=== PATIENT | male | born 1975 | race American Indian/Alaskan Native ===

== ENCOUNTER 2017-03-10 10:44 | Observation (INO) | payer BC, MEDICAID ==
[2017-03-10] MEDS ORDERED: Sodium Chloride 0.9% 1,000 ML IV ONE ×2 (11:10→11:36)
--- NOTE | 2017-03-10 11:10 | C.PDOC ---
History Of Present Illness 41 Y/O MALE C/O VOMITING AND ABDOMINAL PAIN SINCE YESTERDAY. NOTES 4 EPISODES OF VOMITING, VOMITUS CONSISTING OF FOODSTUFFS. DENIES HISTORY OF STOMACH MEDICAL PROBLEMS. OTHERWISE, DENIES DIARRHEA, FEVER, SICK CONTACTS. NO PRIOR ABDOMINAL SURGICAL HISTORY. Time Seen by Provider: 03/10/17 10:58 Chief Complaint (Nursing): Abdominal Pain History Per: Patient History/Exam Limitations: no limitations Onset/Duration Of Symptoms: Days Current Symptoms Are (Timing): Still Present Quality Of Discomfort: "Pain" Associated Symptoms: Vomiting. denies: Fever, Chills, Diarrhea Recent travel outside of the [place]: No Past Medical History Reviewed: Historical Data, Nursing Documentation, Vital Signs Vital Signs: Last Vital Signs Temp 98 F 03/10/17 10:56 Pulse 96 H 03/10/17 14:25 Resp 20 03/10/17 14:25 BP 117/73 03/10/17 14:25 Pulse Ox 99 03/10/17 17:28 - Medical History PMH: No Chronic Diseases Family History: States: Unknown Family Hx - Social History Hx Alcohol Use: No Hx Substance Use: No - Immunization History Hx Tetanus Toxoid Vaccination: No Hx Influenza Vaccination: No Hx Pneumococcal Vaccination: No Review Of Systems Except As Marked, All Systems Reviewed And Found Negative. Constitutional: Negative for: Fever, Chills Cardiovascular: Negative for: Chest Pain Respiratory: Negative for: Cough, Shortness of Breath, Wheezing Gastrointestinal: Positive for: Vomiting, Abdominal Pain Genitourinary: Negative for: Dysuria Skin: Negative for: Rash Physical Exam - Physical Exam Appears: Non-toxic, Other (MILD DISTRESS) Skin: Normal Color, Warm, Dry Head: Atraumatic, Normacephalic Oral Mucosa: Moist Chest: Symmetrical Cardiovascular: Rhythm Regular Respiratory: Normal Breath Sounds, No Rales, No Rhonchi, No Wheezing Gastrointestinal/Abdominal: Soft, Tenderness (EPIGASTRIC), No Distention, No Guarding, No Rebound, Other Back: Normal Inspection, No CVA Tenderness Extremity: Normal ROM, Capillary Refill (< 2 SEC.) Neurological/Psych: Oriented x3, Normal Speech, Normal Cognition ED Course And Treatment - Laboratory Results Result Diagrams: 03/10/17 11:28 03/10/17 11:28 ECG: Interpreted By Me Interpretation Of ECG: NORMAL SINUS RHYTHM WITH SINUS ARRYTHMIA Rate From EC (BPM) O2 Sat by Pulse Oximetry: 99 (RA) Pulse Ox Interpretation: Normal - CT Scan/US CT ABDOMEN/PELVIS Other Rad Studies (CT/US): Read By Radiologist, Radiology Report Reviewed CT/US Interpretation: IMPRESSION: Question colonic wall thickening of the transverse and portions of the left colon; this is favored to be an exaggerated appearance due to under distension. There are no associated inflammatory changes evident. However correlate clinically to exclude possibility of colitis. Bibasilar atelectasis or infiltrates. Hepatic steatosis. Additional findings as above. Progress - Re-Evaluation Re-evaluation Note: 03/10/17 11:13 NO SIGNS OF ACUTE ABDOMEN. FLUIDS, NAUSEA MEDS, PEPCID, MORPHINE GIVEN. EKG, LABS ORDERED. ED OBSERVATION Discharge: Yes Date of observation admission: 03/10/17 Time of observation admission: 11:00 - Observation admission statement Patient is being placed in observation because:: VOMITING, ABD PAIN - Goals of Observation Goals of observation are:: SX IMPROVE. NEG ACUTE ABD - Progress Note Progress Note: 03/10/17 13:04 improved. still co residual abd pain. ivf in progress 03/10/17 14:12 REPEAT VBG PERSIST ELEV LACTATE BUT IMPROVED COMPARED TO PRIOR CO RECUR NAUSEA, RESID ABD PAIN. SOFT NT ND NO R/G VSS S/P NS 3L. WILL CT, REASSESS 03/10/17 17:53 FEELS BETTER. NV RESOLVED. ABD NEG. Disposition Counseled Patient/Family Regarding: Studies Performed, Diagnosis, Need For Followup, Rx Given - Disposition Disposition: HOME/ ROUTINE Disposition Time: 17:53 Condition: IMPROVED - Clinical Impression Clinical Impression: Abdominal colic, Vomiting - Scribe Statement The provider has reviewed the documentation as recorded by the Scribe SM All medical record entries made by the Scribe were at my direction and personally dictated by me. I have reviewed the chart and agree that the record accurately reflects my personal performance of the history, physical exam, medical decision making, and the department course for this patient. I have also personally directed, reviewed, and agree with the discharge instructions and disposition.
[2017-03-10] MEDS ORDERED: Sodium Chloride 0.9% 1,000 ML ONE ×2 (11:19→12:08)
[2017-03-10 11:33] LABS: VENOUS BLOOD GAS BASE EXCESS -2.2 mmol/L (0.0-2.0); VENOUS BLOOD GAS PCO2 47 mmHg (40-60); VENOUS BLOOD PH 7.32 (7.32-7.43)
[2017-03-10 11:35] LABS: BASO % 0.5 % (0.0-2.0); EOS % 0.1 % (0.0-4.0); HEMATOCRIT 38.5 % (35.0-51.0); LYMPH # 1.2 K/uL (1.0-4.3); LYMPH % 12.2 % (20.0-40.0); MEAN CELL VOLUME 87.4 fL (80.0-94.0); MEAN CORPUSCULAR HEMOGLOBIN 29.2 pg (27.0-31.0); MEAN CORPUSCULAR HGB CONC 33.4 g/dL (33.0-37.0); MEAN PLATELET VOLUME 9.1 fL (7.2-11.7); MONO # 0.5 K/uL (0.0-0.8); MONO % 5.4 % (0.0-10.0); RED CELL DISTRIBUTION WIDTH 13.5 % (11.5-14.5); WHITE BLOOD COUNT 9.6 K/uL (4.8-10.8)
[2017-03-10 11:43] LABS: CHLORIDE 103 mmol/L (98-107); SODIUM 142 mmol/L (132-148)
[2017-03-10 11:44] LABS: POTASSIUM 3.9 mmol/L (3.6-5.2)
[2017-03-10 11:46] LABS: ALB/GLOB RATIO 1.1 (1.0-2.1); ALKALINE PHOSPHATASE 91 U/L (38-126); ALT/SGPT 31 U/L (21-72); AST/SGOT 21 U/L (17-59); BILIRUBIN,TOTAL 0.6 mg/dL (0.2-1.3); BLOOD UREA NITROGEN 14 mg/dL (9-20); CALCIUM 9.1 mg/dl (8.6-10.4); CARBON DIOXIDE 23 mmol/L (22-30); GFR AFRICAN-AMERICAN > 60; GLUCOSE,RANDOM 198 mg/dL (75-110); TOTAL PROTEIN 7.9 g/dL (6.3-8.3)
[2017-03-10 13:41] LABS: RBC URINE 1 /hpf (0-3); URINE BILIRUBIN NEGATIVE (NEGATIVE); URINE BLOOD NEGATIVE (NEGATIVE); URINE COLOR Yellow (YELLOW); URINE GLUCOSE (UA) NORMAL (Normal); URINE KETONE TRACE mg/dL (NEGATIVE); URINE LEUKOCYTE ESTERASE NEG Leu/uL (Negative); URINE PROTEIN NEGATIVE (NEGATIVE); URINE UROBILINOGEN NORMAL mg/dL (0.2-1.0); WBC URINE 4 /hpf (0-5)
[2017-03-10 14:09] LABS: VENOUS BLOOD GAS BASE EXCESS -8.2 mmol/L (0.0-2.0); VENOUS BLOOD GAS PCO2 46 mmHg (40-60); VENOUS BLOOD PH 7.23 (7.32-7.43)
[2017-03-10 14:26] VITALS: RESP 20
--- NOTE | 2017-03-10 17:21 | CT ---
PROCEDURE: CT Abdomen and Pelvis with contrast HISTORY: VOMITING, ABD PAIN COMPARISON: None available. TECHNIQUE: Contrast dose: 100 cc Visipaque 320 Radiation dose: Total exam DLP = 1085.31 mGy-cm. This CT exam was performed using one or more of the following dose reduction techniques: Automated exposure control, adjustment of the mA and/or kV according to patient size, and/or use of iterative reconstruction technique. FINDINGS: LOWER THORAX: Bibasilar atelectasis or infiltrates. No visible pleural effusion or pneumothorax. LIVER: Hypoattenuation of the liver compatible with hepatic steatosis. GALLBLADDER AND BILE DUCTS: Unremarkable. PANCREAS: Unremarkable. SPLEEN: Unremarkable. ADRENALS: Unremarkable. KIDNEYS AND URETERS: The kidneys enhance symmetrically. No hydronephrosis or obstructing calculus identified. VASCULATURE: No aortic aneurysm. BOWEL: Stomach is nondistended. Lack of oral contrast limits evaluation for bowel pathology. Bowel loops appear within normal limits of caliber without evidence of obstruction. Question wall thickening of the transverse and portions of the left colon; this is favored exaggerated by under distension. There are no associated inflammatory changes evident. However correlate clinically to exclude possibility of colitis. APPENDIX: The appendix appears within normal limits of caliber. No secondary signs of acute appendicitis. PERITONEUM: No significant free fluid. No definite free air. LYMPH NODES: Unremarkable. No enlarged lymph nodes. BLADDER: Urinary bladder distension. REPRODUCTIVE: Unremarkable. BONES: Degenerative changes. Anterior bridging osteophyte, left sacroiliac joint. OTHER FINDINGS: 10 mm fat containing umbilical hernia. IMPRESSION: Question colonic wall thickening of the transverse and portions of the left colon; this is favored to be an exaggerated appearance due to under distension. There are no associated inflammatory changes evident. However correlate clinically to exclude possibility of colitis. Bibasilar atelectasis or infiltrates. Hepatic steatosis. Additional findings as above.
[2017-03-10 18:33] VITALS: BP 118/74; PULSE 79; TEMP 99.8; O2SAT 98
--- NOTE | 2017-03-13 18:13 | CARD ---
APPROVED REPORT EKG Measurement Heart [id number] <Conclusion> Normal sinus rhythm with sinus arrhythmia Inferior infarct, age undetermined Abnormal ECG
== END 2017-03-10 17:53 | disposition home or self-care (01) ==
LOC: C.ER 10:44 → C.9OBSV 11:00
PROVIDERS: ADMIT Emergency Medicine; ATTEND Emergency Medicine
DX: R10.9 Unspecified abdominal pain (principal); R11.10 Vomiting, unspecified
CPT/HCPCS: 74177; 80053; 81001; 82803; 82948; 83690; 85025; 87086; 96360; 96372; 96374; G0378; J2270; J2405; J2550; J7040